=== PATIENT | female | born 1995 | race Caucasian/White ===

== ENCOUNTER 2017-09-30 09:28 | Outpatient (CLI) | payer OTHER ==
--- NOTE | 2017-09-30 11:22 | RAD ---
LUMBAR SPINE 5 VIEWS: Date: 09/30/17 HISTORY: Low back pain with interval worsening. FINDINGS/IMPRESSION: No fracture, subluxation, or bony destruction is seen. No change in alignment is noted on flexion or extension. POS: [facility]
== END 2017-09-30 09:29 | disposition home or self-care (01) ==
LOC: SCSRAD 09:28
PROVIDERS: ATTEND Family Medicine
DX: M54.5 Low back pain (principal); G89.29 Other chronic pain
CPT/HCPCS: 72120

== ENCOUNTER 2018-07-26 06:38 | Emergency (ER) | payer OTHER | END 2018-07-26 07:16 | disposition home or self-care (01) | LOC: SCSER 06:38 | DX: H60.92 Unspecified otitis externa, left ear (principal); J45.909 Unspecified asthma, uncomplicated; F32.9 Major depressive disorder, single episode, unspecified | CPT/HCPCS: 99282 ==

== ENCOUNTER 2018-10-20 01:27 | Emergency (ER) | payer OTHER ==
[2018-10-20] MEDS ORDERED: HYDROcodone/Acetaminophen 5/325 mg Tablet ONE (02:01)
== END 2018-10-20 02:08 | disposition home or self-care (01) ==
LOC: SCSER 01:27
DX: L73.2 Hidradenitis suppurativa (principal); F90.9 Attention-deficit hyperactivity disorder, unspecified type; J45.909 Unspecified asthma, uncomplicated; Z79.899 Other long term (current) drug therapy

== ENCOUNTER 2019-01-03 16:01 | Emergency (ER) | payer OTHER ==
[~2019-01-03 16:01] MED LIST: Iopamidol 370 76% 100 ML VIAL ONE
[2019-01-03 16:31] LABS: Bilirubin Negative (Negative); Blood, Urine Large (Negative); Glucose, Urine (Dipstick) Negative (Negative); Leukocyte Negative (Negative); Nitrite Negative (Negative); Pregnancy Test - Urine (BHCG) Negative (Negative); Pregu Control Background? CLEAR/WHITE (CLR/WHITE); Pregu Control Bar Appear? YES (CONTROL BAR); Protein, Urine (Dipstick) 30 mg/dL (Neg-Trace); Specific Gravity 1.025 (1.002-1.036); Specific Gravity, Urine 1.025 (1.005-1.030); Urobilinogen 0.2 mg/dL (0.2-1.0); pH, Urine 6.5 (5.0-9.0)
[2019-01-03 16:32] LABS: Clarity Hazy (Clear)
[2019-01-03 16:39] LABS: RBC/HPF 21-50 HPF (0-3); WBC/HPF None Seen HPF (0-3)
[2019-01-03 16:40] LABS: #Basophils 0.1 thou/uL (0.0-0.2); #Eosinphils 0.3 thou/uL (0.0-0.7); #Lymphocytes 4.4 thou/uL (1.20-3.40); #Monocytes 0.8 thou/uL (0.11-0.59); #Neutrophils 7.8 thou/uL (1.40-6.50); %Basophils 1.1 % (0.0-1.0); %Eosinophils 2.1 % (0.0-10.0); %Lymphocytes 33.1 % (21.0-51.0); %Monocytes 5.7 % (0.0-10.0); %Neutrophils 58.1 % (42.0-75.0); Bacteria/HPF 1+ HPF (None Seen); Hemoglobin 13.1 g/dL (12.0-16.0); Mean Corpuscular HGB CONC 31.6 g/dL (32.0-36.0); Mean Corpuscular Hemoglobin 25.5 pg (27.0-31.0); Mean Corpuscular Volume 80.8 fL (78.0-98.0); Mean Platelet Volume 7.6 fL (7.4-10.4); Platelet Count 430 thou/uL (130-400); RBC Distribution Width 14.4 % (11.5-14.5); Red Blood Cell (RBC) Count 5.14 mill/uL (4.20-5.40); White Blood Cell (WBC) Count 13.4 thou/uL (4.8-10.8)
[2019-01-03 16:56] LABS: ALT (SGPT) 24 U/L (8-55); AST (SGOT) 15 U/L (5-34); Albumin 4.2 g/dL (3.5-5.0); Alkaline Phosphatase 88 U/L (40-150); Anion Gap 15 mmol/L (10-20); BUN (Urea Nitrogen) 10 mg/dL (7.0-18.7); Bilirubin, Total 0.4 mg/dL (0.2-1.2); Calc. Creatinine Clearance 0 mL/min (70-130); Calcium 9.7 mg/dL (7.8-10.44); Carbon Dioxide 21 mmol/L (22-29); Chloride 105 mmol/L (98-107); Estimated GFR-MDRD Greater than 90; Globulin 3.3 g/dL (2.4-3.5); Glucose 83 mg/dL (70-105); Potassium 3.9 mmol/L (3.5-5.1); Protein, Total 7.5 g/dL (6.0-8.3); Sodium 137 mmol/L (136-145)
--- NOTE | 2019-01-03 18:37 | CT ---
CT ABDOMEN AND PELVIS WITH CONTRAST: 01/03/19 Multiple axial tomograms obtained through the abdomen and pelvis with IV enhancement. INDICATIONS: Abdominal pain. FINDINGS: Lung bases are clear. The liver, spleen and pancreas unremarkable. Adrenal glands normal. Kidneys unremarkable. Urinary bladder is contracted and not well evaluated. Small bowel loops normal. The appendix is normal caliber and shows no evidence of inflammation. Colon unremarkable. Images through the pelvis show unremarkable uterus. There is a right ovarian cyst measuring 1.5 cm. No significant free fluid. IMPRESSION: Small right ovarian cyst. No acute process identified. POS: [facility]
== END 2019-01-03 17:40 | disposition home or self-care (01) ==
LOC: SCSER 16:01
DX: R10.31 Right lower quadrant pain (principal); R10.11 Right upper quadrant pain; F32.9 Major depressive disorder, single episode, unspecified; F90.9 Attention-deficit hyperactivity disorder, unspecified type; Z79.899 Other long term (current) drug therapy
CPT/HCPCS: 74177; 80053; 81003; 81015; 81025; 85025; Q9967

== ENCOUNTER 2023-10-03 13:02 | Outpatient (CLI) | payer OTHER | END 2023-10-03 13:03 | disposition home or self-care (01) | LOC: DTY/OP 13:02 | PROVIDERS: ATTEND Internal Medicine | DX: E66.01 Morbid (severe) obesity due to excess calories (principal) | CPT/HCPCS: 97802 ==